=== PATIENT | male | born 1950 | race Caucasian/White ===

== ENCOUNTER 2025-07-01 13:08 | Emergency (ER) | payer OTHER, MEDICARE ==
[~2025-07-01] VITALS: Ht 172.7 cm; Wt 106.5 kg
[2025-07-01] MEDS ORDERED: LORazepam 2 MG/ML VIAL ONE ×2 (13:14→13:31)
[2025-07-01 13:27] LABS: BASOPHILS 0.2 % (0.2-1.2); EOSINOPHILS 0.1 % (0.8-7.0); LYMPHOCYTES 4.0 % (21.8-53.1); MCH 28.1 PG (25.7-32.2); MCHC 32.6 g/dL (32.3-36.5); MCV 86.1 fL (79.0-92.2); MONOCYTES 9.5 % (5.3-12.2); NEUTROPHILS 85.8 % (34.0-67.9); RBC 4.45 M/uL (4.63-6.08)
[2025-07-01 13:44] LABS: ALT (SGPT) 23.0 U/L (14-59); AST (SGOT) 18.0 U/L (15-37); GLOMERULAR FILTRATION RATE,EST 45.0 mL/min (>60); PROTEIN, TOTAL 7.5 g/dL (6.4-8.2); UREA NITROGEN 28.0 mg/dL (7-18)
[2025-07-01] MEDS ORDERED: LORazepam 2 MG/ML VIAL IV ONE ×2 (14:00→14:15)
[2025-07-01 14:21] LABS: INR 4.39 (0.80-1.30); PROTIME 40.6 Sec (11.2-14.2)
[2025-07-01] MEDS ORDERED: HYDROXYZINE HCL50 MG PO (14:23)
[2025-07-01] MEDS ORDERED: ROPINIROLE HCL4 MG PO (14:24)
[2025-07-01] MEDS ORDERED: MELATONIN10 M2 PO (14:24)
[2025-07-01] MEDS ORDERED: COZAAR100 MG PO (14:25)
[2025-07-01] MEDS ORDERED: BACLOFEN20 MG PO (14:25)
[2025-07-01] MEDS ORDERED: FLOMAX0.4 MG PO (14:26)
[2025-07-01] MEDS ORDERED: ROSUVASTATIN CAL5 MG PO (14:26)
[2025-07-01] MEDS ORDERED: JANTOVEN5 MG PO (14:27)
[2025-07-01] MEDS ORDERED: TRAMADOL HCL50 MG PO (14:27)
[2025-07-01] MEDS ORDERED: ASPIRIN81 MG PO (14:28)
[2025-07-01] MEDS ORDERED: FOLIC ACID1 MG PO (14:28)
[2025-07-01] MEDS ORDERED: NEURONTIN800 MG PO (14:29)
[2025-07-01] MEDS ORDERED: METOPROLOL SUCC50 MG PO (14:31)
[2025-07-01] MEDS ORDERED: KLOR-CON M1010 MEQ PO (14:33)
[2025-07-01] MEDS ORDERED: LASIX40 MG PO (14:33)
[2025-07-01] MEDS ORDERED: BUTRANS1 EAC4 TD (14:34)
[2025-07-01] MEDS ORDERED: LOVENOX100 MG/1 M SUB-Q (14:35)
[2025-07-01] MEDS ORDERED: HUMAN PROTHROMBIN COMPLX(PCC) 500 UNIT/20 ML VIAL IV ONE (14:45)
[2025-07-01] MEDS ORDERED: PHYTONADIONE 10 MG in SODIUM CHLORIDE 0.9% 50 ML IV ONE (14:45)
[2025-07-01] MEDS ORDERED: SODIUM CHLORIDE 0.9% 50 ML IV PRN (14:45)
[2025-07-01 16:19] VITALS: BP 112/43
--- NOTE | 2025-07-03 18:24 | EKG ---
[facility] [address] [facility] [place] [address] Signed Undetermined rhythm Nonspecific intraventricular block T wave abnormality, consider inferolateral ischemia Abnormal ECG No previous ECGs available Confirmed by Primo Edouard DO ([id number]) on 07/03/2025 6:23:54 PM Electronically Signed By: PRIMO EDOUARD DO 07/03/25 1824 PATIENT NAME: KATTY GARCIA Electrocardiogram DATE OF : 54 PHYSICIAN: PRIMO EDUOARD DO REPORT #: [id number] REPORT IS CONFIDENTIAL AND NOT TO BE RELEASED WITHOUT AUTHORIZATION
== END 2025-07-01 16:22 | disposition short-term general hospital (02) ==
LOC: ED 13:08
PROVIDERS: Emergency Medicine
DX: I62.00 Nontraumatic subdural hemorrhage, unspecified (principal); G81.94 Hemiplegia, unspecified affecting left nondominant side; Z66 Do not resuscitate; Z88.0 Allergy status to penicillin; I48.91 Unspecified atrial fibrillation; Z79.82 Long term (current) use of aspirin
CPT/HCPCS: 36415; 70450; 70496; 70498; 71045; 80053; 81001; 85025; 85610; 85730; 93005; 93010; 96374; 96375; 99285-25; J1953; J2060; J3430; J7168; Q9967